=== PATIENT | female | born 1960 | race Caucasian/White ===

== ENCOUNTER → 2018-08-14 | Outpatient (CLI) | payer BC ==
--- NOTE | 2018-08-14 16:39 | RAD ---
Pelvic and transvaginal ultrasound History: "Pinching" of the left lower quadrant, history of cysts Comparison: None. Findings: Multiple transabdominal sonographic images of the pelvis are submitted. Pelvic structures are poorly visualized. Transvaginal ultrasound: Multiple transvaginal sonographic images of pelvis are submitted. Uterus measured 7 x 4.8 x 5.7 cm, retroverted. Endometrium is poorly visualized in part by a large mass about 3.7 x 2.3 x 3.4 cm near the fundus of the uterus. There is also fluid in the endometrial cavity, pocket of fluid about 0.9 x 0.5 x 1.5 cm in size. Left ovary measured 2.6 x 1.4 x 1.5 cm. Right ovary measured 2.5 x 1.8 x 1.2 cm. There is normal low resistance vascularity of the bilateral ovaries. No free fluid is demonstrated. Impression: 1. No ovarian cyst is demonstrated on either side. There is a uterine mass closer to the fundus, likely large fibroid. There is nonspecific fluid in the endometrial cavity, tillman of endometrium poorly distinguished. Electronically signed by: Andrew Walton MD (08/14/2018 4:35 PM) [id number]
--- NOTE | 2018-08-16 15:17 | RAD ---
DATE: 08/14/2018 2:00 AM EXAM: DIGITAL DIAGNOSTIC BILATERAL, BREAST RIGHT HISTORY: Right breast pain and pressure COMPARISON: Prior mammogram 12/03/2017, 08/11/2016, 06/13/2015 Bilateral full field craniocaudal and mediolateral oblique images were obtained using digital technique. This study was interpreted with the benefit of Computerized Aided Detection (CAD ). Breast Density: The breast parenchyma is heterogeneously dense, which could reduce sensitivity of mammography. Breast parenchyma level C. FINDINGS: Benign calcifications are present. The parenchymal pattern appears stable. No suspicious masses, microcalcifications or architectural distortion is present to suggest malignancy in either breast. The visualized axillae are unremarkable. Ultrasound was also performed to assess the right breast pain. The right breast was imaged with ultrasound guidance including the right axilla without discrete abnormality identified. Normal parenchymal tissue is seen. IMPRESSION: No mammographic evidence of malignancy. BI-RADS CATEGORY: 2 BENIGN FINDING(S) RECOMMENDED FOLLOW-UP: 12M 12 MONTH FOLLOW-UP Annual screening mammography is recommended, unless clinically indicated sooner based on symptoms or change in physical exam. Recommend clinical management of the patient's right breast pain. PQRS compliance statement: Patient information was entered into a reminder system with a target due date 08/14/2019 for the next mammogram. Mammography is a sensitive method for finding small breast cancers, but it does not detect them all and is not a substitute for careful clinical examination. A negative mammogram does not negate a clinically suspicious finding and should not result in delay in biopsying a clinically suspicious abnormality. "Our facility is accredited by the [employer] Mammography Program." JUDED
== END | disposition home or self-care (01) ==
LOC: US 12:55
PROVIDERS: ATTEND Obstetrics & Gynecology
DX: R92.1 Mammographic calcification found on diagnostic imaging of breast (principal); N64.4 Mastodynia; N62 Hypertrophy of breast; R10.32 Left lower quadrant pain
CPT/HCPCS: 76641; 76830; 76856; 77066